=== PATIENT | female | born 1965 | race Caucasian/White ===

== ENCOUNTER 2021-05-05 00:06 | Inpatient (IN) | payer MEDICAID, SELFPAY ==
[2021-05-05 00:20] VITALS: BP 109/68; PULSE 91; RESP 18; TEMP 36.9; O2SAT 95
[2021-05-05] MEDS: trazodone 50 mg Tablet PO (00:55)
[2021-05-05 06:00] VITALS: BP 132/82; PULSE 86; RESP 15; TEMP 37; O2SAT 95
[2021-05-05] MEDS: venlafaxine ER (24HR) 150 mg Capsule PO (09:15)
[2021-05-05] MEDS: OLANZapine 5 mg ODT PO ×2 (09:15→20:46)
[2021-05-05] MEDS: ARIPiprazole 10 mg Tablet 5 MG PO (09:15)
[2021-05-05] MEDS: CELEcoxib 100 mg Capsule PO ×2 (09:15→17:41)
[2021-05-05] MEDS: nicotine 21 mg Patch 1 PATCH TRANSDERMA (09:27)
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
[2021-05-05 14:00] VITALS: BP 119/76; PULSE 78; RESP 20; TEMP 36.6; O2SAT 96
[2021-05-05] MEDS: hyDROXYzine 25 mg Capsule 50 MG PO (15:30)
[2021-05-05] MEDS: gabapentin 300 mg Capsule PO (15:30)
[2021-05-05 20:36] VITALS: BP 112/77; PULSE 88; RESP 21; TEMP 36.6; O2SAT 96
--- NOTE | 2021-05-05 20:45 | PC.NURSE ---
pt requested anxiety med be given with HS meds. Zyprexa 5mg po given for increased anxiety.
[2021-05-05] MEDS: propranolol 20 mg Tablet PO (20:46)
[2021-05-05] MEDS: trazodone 100 mg Tablet 400 MG PO (20:46)
--- NOTE | 2021-05-05 21:30 | PC.NURSE ---
pt resting quietly with both eyes closed.
--- NOTE | 2021-05-05 23:57 | PC.NURSE ---
Patient states that she was discharged from [facility] in the beginning of april. She said they have a current list of her medications. I called [facility] and they were unwilling to give me the information without a release and then it needs to be obtained from Medical records department.
[2021-05-06 06:00] VITALS: BP 101/57; PULSE 69; RESP 20; TEMP 37; O2SAT 95
[2021-05-06] MEDS: hyDROXYzine 25 mg Capsule 50 MG PO ×2 (06:51→23:19)
[2021-05-06] MEDS: propranolol 20 mg Tablet PO ×2 (09:13→15:14)
[2021-05-06] MEDS: ARIPiprazole 10 mg Tablet 5 MG PO (09:13)
[2021-05-06] MEDS: CELEcoxib 100 mg Capsule PO ×2 (09:13→20:17)
[2021-05-06] MEDS: venlafaxine ER (24HR) 150 mg Capsule PO (09:13)
[2021-05-06] MEDS: OLANZapine 5 mg ODT PO (11:41)
--- NOTE | 2021-05-06 11:49 | PC.NURSE ---
PRN ANXIETY Patient requested medication for anxiety. Given 5 mg Zyprexa Zydis po.
[2021-05-06 14:00] VITALS: BP 104/65; PULSE 63; RESP 18; TEMP 36.3; O2SAT 95
--- NOTE | 2021-05-06 15:23 | PC.NUTR ---
Nutrition assessment triggered for MST score of 2, due to pt stating she is unsure of recent weight loss. Unable to estimate nutritional needs at this time as not height or BMI available in chart. Recommend obtain ht when possible. See RD assessment for further details.
--- NOTE | 2021-05-06 17:03 | P.PN_ITS ---
Subjective NPU Subjective: Interval history: Tamika presents today reporting that she is feeling a little better. We discussed her medication to ensure we had a better understanding of what she has been on what she should be on. We discussed the risk benefits and alternatives of decreasing her Effexor XR to 75 mg p.o. every morning and decreasing her trazodone and she understood and agreed to proceed as documented in this note. Mental Status Exam MSE Comments: This is a slender white female in hospital scrubs with adequate grooming and eye contact with one of her eyes exam from a recent fall. No abnormal movements. Cooperative with exam in no acute distress. Speech was normal rate and volume. Mood described as a little better, affect good. Thought process organized. Thought content: Patient denied suicidal or homicidal ideation, there were no delusions reported or noted, she denied any auditory visual hallucinations. Attention concentration appeared intact and memory preserved. She alert and oriented x3. Insight and judgment appeared fair impulse control appears limited. Vitals/I&O/Wt Last Vital Signs Temp 97.8 F 05/06/21 19:49 Pulse 76 05/06/21 19:49 Resp 21 H 05/06/21 19:49 BP 106/72 05/06/21 19:49 Pulse Ox 95 05/06/21 19:49 A&P Additional A&P Information (1) Alcohol use: (2) Methamphetamine use: (3) PTSD (post-traumatic stress disorder): (4) Major depressive disorder, recurrent severe without psychotic features: Additional A&P Information This is a 55-year-old white female with a long history of addiction, depression trauma and frequent hospitalizations who presents endorsing suicidality and open to medication adjustments. 1. Continue current medication. Decrease Effexor XR to 75 mg p.o. every morning and trazodone to 200 mg p.o. nightly. 2. Continue every 15 minute checks for safety. 3. Encourage individual, group and milieu therapies. 4. Encourage sober living treatment after discharge at the highest level of care to which she is willing to commit. Involuntary Hold Information 96 Hour Hold: 96 Hour Involuntary Admission: No Attestations NPU Medical Necessity Statement*: Inpatient hospitalization is medically necessary and the clinically appropriate intervention at this time. We will monitor medications and make changes as indicated. Likely length of stay 2-4 days. Coding Level of Care Code Acute Hydrate Control Tender for Carlos Lentz
[2021-05-06 19:49] VITALS: BP 106/72; PULSE 76; RESP 21; TEMP 36.6; O2SAT 95
[2021-05-06] MEDS: trazodone 100 mg Tablet 400 MG PO (20:18)
--- NOTE | 2021-05-06 23:22 | PC.NURSE ---
Patient request prn medication for anxiety insomnia. Hydroxyzine 50 mg po given for this.
[2021-05-07 06:00] VITALS: BP 113/67; PULSE 59; RESP 18; TEMP 36.9; O2SAT 96
[2021-05-07] MEDS: CELEcoxib 100 mg Capsule PO ×2 (08:16→21:57)
[2021-05-07] MEDS: ARIPiprazole 10 mg Tablet 5 MG PO (08:17)
[2021-05-07] MEDS: propranolol 20 mg Tablet PO ×3 (08:17→21:58)
[2021-05-07] MEDS: venlafaxine ER (24HR) 75 mg Capsule PO (08:37)
[2021-05-07] MEDS: nicotine 21 mg Patch 1 PATCH TRANSDERMA (09:00)
[2021-05-07] MEDS: hyDROXYzine 25 mg Capsule 50 MG PO (09:57)
--- NOTE | 2021-05-07 09:57 | PC.NURSE ---
Patient at the nurses station requesting something for anxiety. PRN Vistaril administered.
[2021-05-07 13:30] LABS: SARS Covid-2 Antigen Negative (Negative)
[2021-05-07 14:00] VITALS: BP 103/64; PULSE 67; RESP 18; TEMP 36.3; O2SAT 92
--- NOTE | 2021-05-07 14:22 | PM.NPN ---
Subjective NPU Subjective: Interval history: Tamika presents today having not slept well last night. She expressed concerns about a possible decrease in her trazodone reporting that she is always needed to sleep. We discussed the importance of her understanding the impact of drinking on her sleep pattern which will take some time to resolve. We would look at possible ways to assist if she still struggling. We also discussed that the high dose of Effexor due to the high starting dose and her not taking it could also cause sleep disruption. Mental Status Exam MSE Comments: This is a slender white female in hospital scrubs with adequate grooming and eye contact with one of her eyes exam from a recent fall. No abnormal movements. Cooperative with exam in no acute distress. Speech was normal rate and volume. Mood described as not great as I barely slept last night, affect congruent. Thought process organized. Thought content: Patient denied suicidal or homicidal ideation, there were no delusions reported or noted, she denied any auditory visual hallucinations. Attention concentration appeared intact and memory appeared intact but none were formally tested. She is alert and oriented x3. Insight and judgment appeared fair, impulse control appears limited. Vitals/I&O/Wt Last Vital Signs Temp 98.4 F 05/07/21 06:00 Pulse 59 L 05/07/21 06:00 Resp 18 05/07/21 06:00 BP 113/67 05/07/21 06:00 Pulse Ox 96 05/07/21 06:00 A&P Additional A&P Information (1) Alcohol use: (2) Methamphetamine use: (3) PTSD (post-traumatic stress disorder): (4) Major depressive disorder, recurrent severe without psychotic features: Additional A&P Information This is a 55-year-old white female with a long history of addiction, depression trauma and frequent hospitalizations who presents endorsing suicidality and open to medication adjustments. 1. Continue current medication. We will monitor overnight and determine whether we need to make some adjustments in the sleep medications. 2. Continue every 15 minute checks for safety. 3. Encourage individual, group and milieu therapies. 4. Encourage sober living treatment after discharge at the highest level of care to which she is willing to commit. Involuntary Hold Information 96 Hour Hold: 96 Hour Involuntary Admission: No Attestations NPU Medical Necessity Statement*: Inpatient hospitalization is medically necessary and the clinically appropriate intervention at this time. We will monitor medications and make changes as indicated. Likely length of stay 1-3 days. Coding Level of Care Code Acute Warehouse Shipper for Carlos Lentz
[2021-05-07 21:12] VITALS: BP 99/62; PULSE 61; RESP 18; TEMP 36.4; O2SAT 94
[2021-05-07] MEDS: trazodone 100 mg Tablet 200 MG PO (21:58)
[2021-05-08 06:00] VITALS: BP 100/69; PULSE 71; RESP 18; TEMP 36.6; O2SAT 95
[2021-05-08] MEDS: ARIPiprazole 10 mg Tablet 5 MG PO (07:55)
[2021-05-08] MEDS: venlafaxine ER (24HR) 75 mg Capsule PO (07:55)
[2021-05-08] MEDS: propranolol 20 mg Tablet PO (07:55)
[2021-05-08] MEDS: CELEcoxib 100 mg Capsule PO (07:55)
[2021-05-08] MEDS: nicotine 21 mg Patch 1 PATCH TRANSDERMA (09:34)
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
[2021-05-08 13:20] VITALS: BP 100/69; PULSE 71; RESP 18; TEMP 36.6; O2SAT 95
== END 2021-05-08 16:04 | disposition home or self-care (01) | DRG 885 ==
PROVIDERS: Admitting Provider Psychiatry & Neurology Psychiatry; Visit Provider Psychiatry & Neurology Psychiatry
DX: F33.2 Major depressive disorder, recurrent severe without psychotic features (principal); R45.851 Suicidal ideations; F19.20 Other psychoactive substance dependence, uncomplicated; F43.10 Post-traumatic stress disorder, unspecified; R29.6 Repeated falls; F15.90 Other stimulant use, unspecified, uncomplicated; F41.9 Anxiety disorder, unspecified; Z91.5 Personal history of self-harm; Z91.410 Personal history of adult physical and sexual abuse; Z72.89 Other problems related to lifestyle; Z65.3 Problems related to other legal circumstances; Z81.8 Family history of other mental and behavioral disorders; Z81.4 Family history of other substance abuse and dependence
CPT/HCPCS: 87426